=== PATIENT | male | born 1995 | race African-American/Black ===

== ENCOUNTER 2017-01-15 08:45 | Emergency (ER) | payer BC ==
[~2017-01-15] VITALS: Ht 170.2 cm; Wt 103.0 kg
[2017-01-15 08:49] VITALS: BP 129/79; PULSE 78; RESP 15; TEMP 98.7; O2SAT 99
[2017-01-15] MEDS ORDERED: SODIUM CHLOR 0.9% 1000 ML INJ 1,000 ML IV SCH (09:13)
[2017-01-15] MEDS ORDERED: ONDANSETRON HCL 4 MG/2 ML VIAL IVP ONE (09:15)
[2017-01-15 09:20] VITALS: BP 120/76; PULSE 98; RESP 18; O2SAT 99
--- NOTE | 2017-01-15 09:20 | PD ---
HPI Chief Complaint: GI Complaint Time Seen by Provider: 09:09 Travel History International Travel<30 days: No Contact w/Intl Traveler<30days: No Traveled to known affect area: No History of Present Illness HPI 21-year-old male complains of headache, earache sore throat, coughing congestion , abdominal cramping, nausea vomiting diarrhea. Patient states the symptoms started 3 days ago. Patient states that the vomiting could worse for the past 24 hours. Patient states that he has mild aching headache. Patient denies any visual change. Patient denies any neck pain. Patient states the coughing is intermittent and dry cough. Patient states that the abdominal cramping is mild intermittent. Patient denies any dysuria or frequency. Patient denies any back pain. Patient states that he had low-grade fever 2 days ago. PFSH Past Medical History Respiratory: Yes (ANNE) Social History Tobacco Use: No Allergies-Medications (Allergen,Severity, Reaction): Coded Allergies: No Known Allergies (Unverified , 01/15/17) Reported Meds & Prescriptions Reported Meds & Active Scripts Active Zofran Odt (Ondansetron Odt) 4 Mg Tab 4 Mg SL Q6HR PRN Review of Systems General / Constitutional: No: Fever Eyes: No: Visual changes HENT: Positive: Headaches, Sore Throat, Earache Cardiovascular: No: Chest Pain or Discomfort Respiratory: Positive: Cough, No: Shortness of Breath Gastrointestinal: Positive: Nausea, Vomiting, Diarrhea, Abdominal Pain Genitourinary: No: Dysuria Musculoskeletal: No: Pain Skin: No Rash Neurologic: No: Weakness Psychiatric: No: Depression Endocrine: No: Polydipsia Hematologic/Lymphatic: No: Easy Bruising Physical Exam Narrative GENERAL: Well-nourished, well-developed patient. SKIN: Focused skin assessment warm/dry. HEAD: Normocephalic. EYES: No scleral icterus. No injection or drainage. NECK: Supple, trachea midline. No JVD or lymphadenopathy. TM: Clear. Throat: Nonerythematous. CARDIOVASCULAR: Regular rate and rhythm without murmurs, gallops, or rubs. RESPIRATORY: Breath sounds equal bilaterally. No accessory muscle use. GASTROINTESTINAL: Abdomen soft, non-tender, nondistended. MUSCULOSKELETAL: No cyanosis, or edema. BACK: Nontender without obvious deformity. No CVA tenderness. Neurologic exam normal. Data Data Last Documented VS Vital Signs Date Time Temp Pulse Resp B/P Pulse Ox O2 Delivery O2 Flow Rate FiO2 01/15/17 10:30 84 16 125/78 99 Room Air 01/15/17 08:49 98.7 Orders Complete Blood Count With Diff (01/15/17 09:13) Comprehensive Metabolic Panel (01/15/17 09:13) Iv Access Insert/Monitor (01/15/17 09:13) Ecg Monitoring (01/15/17 09:13) Oximetry (01/15/17 09:13) Ondansetron Inj (Zofran Inj) (01/15/17 09:15) Sodium Chlor 0.9% 1000 Ml Inj (Ns 1000 M (01/15/17 09:13) Chest, Single Ap (01/15/17 09:13) Labs Laboratory Tests Test 01/15/17 09:30 White Blood Count 8.7 TH/MM3 Red Blood Count 5.22 MIL/MM3 Hemoglobin 15.0 GM/DL Hematocrit 44.0 % Mean Corpuscular Volume 84.4 FL Mean Corpuscular Hemoglobin 28.8 PG Mean Corpuscular Hemoglobin 34.2 % Concent Red Cell Distribution Width 13.5 % Platelet Count 274 TH/MM3 Mean Platelet Volume 7.7 FL Neutrophils (%) (Auto) 70.9 % Lymphocytes (%) (Auto) 11.1 % Monocytes (%) (Auto) 14.8 % Eosinophils (%) (Auto) 2.7 % Basophils (%) (Auto) 0.5 % Neutrophils # (Auto) 6.2 TH/MM3 Lymphocytes # (Auto) 1.0 TH/MM3 Monocytes # (Auto) 1.3 TH/MM3 Eosinophils # (Auto) 0.2 TH/MM3 Basophils # (Auto) 0.0 TH/MM3 CBC Comment DIFF FINAL Differential Comment Sodium Level 136 MEQ/L Potassium Level 4.3 MEQ/L Chloride Level 100 MEQ/L Carbon Dioxide Level 29.3 MEQ/L Anion Gap 7 MEQ/L Blood Urea Nitrogen 12 MG/DL Creatinine 0.99 MG/DL Estimat Glomerular Filtration 116 ML/MIN Rate Random Glucose 89 MG/DL Calcium Level 9.3 MG/DL Total Bilirubin 0.7 MG/DL Aspartate Amino Transf 46 U/L (AST/SGOT) Alanine Aminotransferase 34 U/L (ALT/SGPT) Alkaline Phosphatase 59 U/L Total Protein 8.5 GM/DL Albumin 3.9 GM/DL MDM Medical Decision Making Medical Screen Exam Complete: Yes Emergency Medical Condition: Yes Interpretation(s) 10:18 AM. Chest x-ray shows no acute consolidation. CBC within normal limit. CMP within normal limit. Differential Diagnosis Differential diagnosis including viral syndrome, gastroenteritis, electrolyte imbalance, dehydration. Narrative Course 21-year-old male with headache, coughing congestion, nausea vomiting diarrhea. Diagnosis Primary Impression: Gastroenteritis Additional Impression: Viral syndrome Patient Instructions: General Instructions Additional Instructions: Tylenol or ibuprofen for aching pain. Zofran as needed for nausea. Encourage by mouth fluid. Follow-up with personal physician. Return if persistent problem or worse. Med/Other Pt SpecificInfo: Prescription(s) given Scripts Ondansetron Odt (Zofran Odt)4 Mg Tab4 Mg SL Q6HR PRN (Nausea/Vomiting) #10 TAB Prov:Gold Cramer MD 01/15/17 Disposition: 01 DISCHARGE HOME Condition: Stable Gold Cramer MD Jan 15, 2017 09:20
--- NOTE | 2017-01-15 09:38 | RADRPT ---
EXAM DATE/TIME: 01/15/2017 09:15 [facility] COMPARISON: No previous studies available for comparison. INDICATIONS : Cough, fever. MEDICAL HISTORY : asthma SURGICAL HISTORY : None. ENCOUNTER: Initial ACUITY: 1 day PAIN SCORE: Non-responsive. LOCATION: Bilateral chest FINDINGS: A single view of the chest demonstrates the lungs to be symmetrically aerated without evidence of mas s, infiltrate or effusion. The cardiomediastinal contours are unremarkable. Osseous structures are intact. CONCLUSION: The lungs are clear. Abhinav Parra MD on January 15, 2017 at 9:36 Board Certified Radiologist. This report was verified electronically.
[2017-01-15 09:50] LABS: AUTOMATED NEUTROPHIL # 6.2 TH/MM3 (1.8-7.7); BASOPHIL % 0.5 % (0.0-2.0); EOSINOPHIL # 0.2 TH/MM3 (0-0.4); EOSINOPHIL % 2.7 % (0.0-4.0); HEMO FLAGS DIFF FINAL; LYMPH % 11.1 % (9.0-44.0); MEAN CELL VOLUME 84.4 FL (80.0-100.0); MEAN CORPUSCULAR HEMOGLOBIN 28.8 PG (27.0-34.0); MEAN CORPUSCULAR HGB CONC 34.2 % (32.0-36.0); MONO % 14.8 % (0.0-8.0); NEUT % 70.9 % (16.0-70.0); PLATELET COUNT 274 TH/MM3 (150-450); RED BLOOD COUNT 5.22 MIL/MM3 (4.50-5.90); RED CELL DISTRIBUTION WIDTH 13.5 % (11.6-17.2); WHITE BLOOD COUNT 8.7 TH/MM3 (4.0-11.0)
[2017-01-15 10:15] LABS: ALKALINE PHOSPHATASE 59 U/L (45-117); ALT (GPT) 34 U/L (12-78); ANION GAP 7 MEQ/L (5-15); AST (GOT) 46 U/L (15-37); BICARBONATE 29.3 MEQ/L (21.0-32.0); BLOOD UREA NITROGEN 12 MG/DL (7-18); CHLORIDE 100 MEQ/L (98-107); GLOMERULAR FILTRATION RATE 116 ML/MIN (>89); POTASSIUM 4.3 MEQ/L (3.5-5.1); SODIUM (NA) 136 MEQ/L (136-145); TOTAL BILIRUBIN ADULT 0.7 MG/DL (0.2-1.0)
[2017-01-15] MEDS ORDERED: ZOFR4TAB3 SL (10:21)
[2017-01-15 10:30] VITALS: BP 125/78; PULSE 84; RESP 16; O2SAT 99
== END 2017-01-15 11:02 | disposition home or self-care (01) ==
LOC: NEPD 08:45
DX: K52.9 Noninfective gastroenteritis and colitis, unspecified (principal); B34.9 Viral infection, unspecified
CPT/HCPCS: 71010; 80053; 85025; 96361; 96374; 99283; J2405; J7030